=== PATIENT | female | born 1995 ===

== ENCOUNTER 2017-01-13 16:39 | Emergency (ER) | payer OTHER ==
[2017-01-13 18:02] VITALS: BP 128/86
[2017-01-13] MEDS ORDERED: Ketorolac INJ* 60 MG/2 ML VIAL IM ONE (18:35)
[2017-01-13] MEDS ORDERED: Ondansetron ODT TAB* 4 MG SL ONE (18:35)
--- NOTE | 2017-01-13 18:43 | UC ---
Headache HPI - HPI Summary HPI Summary: PATIENT ARRIVES TO WITH MULTIPLE COMPLAINTS. SHE NOTES TO A SEVERE HEADACHE BEHIND THE RIGHT EYE AT 9/10 PAIN. SYMPTOMS BEGAN 2 WEEKS AGO AND ARE INTERMITTENT, YET EVERYDAY. SHE DENIES TEARING. SHE ENDORSES NAUSEA ASSOCIATED , BUT STATES THE NAUSEA COULD BE FROM HER MENSTRUAL CRAMPS. SHE HAS SOME LIGHT SENSITIVITY, BUT NOT SOUND. SHE USED TO HAVE MIGRAINES AT FIRST ONSET OF MENSTRUATION WHEN SHE WAS AROUND 8. THEY THEN DISSIPATED AND HAS NOT HAD MIGRAINES SINCE. HER MENSTRUAL CRAMPS ARE 10/10 AND SHE SOAKS THROUGH A TAMPON AND PAD SOMETIMES EVERY HOUR WHILE ON HER PERIOD. THEY LAST ABOUT 7 DAYS AND SHE IS USUALLY UNABLE TO GO TO SCHOOL AND HER NORMAL ACTIVITIES. THEY ARE "DEBILITATING AND LEAVE ME ON THE FLOOR MOST OF THE DAY." SHE IS A STUDENT HERE AND DOES NOT HAVE A PRIMARY CARE OR OBGYN. SHE CONSIDERED GOING TO PLANNED PARENTHOOD. SHE IS NOT ON BC. SHE IS ALSO COMPLAINING OF CHRONIC GERD WHICH IS INTERMITTENT AND WORSE AFTER MEALS. SHE DOES NOT TAKE MEDICATIONS - History Of Current Complaint Chief Complaint: UCHeadache Stated Complaint: SORE THROAT Hx Obtained From: Patient Hx Last Menstrual Period: 01/07/17 ?: No Onset/Duration: Gradual Onset Onset Of Symptoms: Gradual Initially Headache Was: Initial Pain Scale(0-10)= - 9 Currently Pain Is: Current Pain Scale(0-10)= - 9 Pain Intensity: 9 Pain Scale Used: 0-10 Numeric Timing: Intermittent, Lasting: Character: Dull, Pressure, Migraine - OCULAR Location of Headache: Other: - OCULAR Allevating Factors: Nothing Associated Signs And Symptoms: Positive: Nausea - Risk Factors SAH Risk Factors: -Togolese Meningitis Risk Factors: Negative SDH Risk Factors: Negative Temporal Arteritis Risk Factors: Negative - Allergies/Home Medications Allergies/Adverse Reactions: Allergies Allergy/AdvReac Type Severity Reaction Status Date / Time No Known Allergies Allergy Verified 01/13/17 18:02 Home Medications: Home Medications Acetaminophen TAB* [Tylenol TAB*] 650 mg PO ONCE PRN 01/13/17 [History Confirmed 01/13/17] Sulfamethox/Trimethoprim DS* [Bactrim DS 800/160 TAB*] 1 tab PO BID 01/13/17 [ History Confirmed 01/13/17] PMH/Surg Hx/FS Hx/Imm Hx Previously Healthy: Yes - Surgical History Surgical History: Yes Surgery Procedure, Year, and Place: dental - Family History Known Family History: Positive: Unknown - Social History Occupation: Student Lives: With Family Alcohol Use: Occasionally Substance Use Type: None Smoking Status (MU): Never Smoked Tobacco Review of Systems Constitutional: Negative Eyes: Negative ENT: Negative Respiratory: Negative Cardiovascular: Negative Gastrointestinal: Other - NAUSEA Genitourinary: Dysuria, Other - CURRENT UTI SEVERE MENSTRUAL CRAMPS Motor: Negative Neurovascular: Negative Neurological: Negative Psychological: Negative All Other Systems Reviewed And Are Negative: Yes Physical Exam Triage Information Reviewed: Yes Appearance: Well-Appearing, No Pain Distress, Well-Nourished Vital Signs: Initial Vital Signs Temp 98.7 F 01/13/17 17:46 Pulse 76 01/13/17 17:46 Resp 18 01/13/17 17:46 BP 128/86 01/13/17 17:46 Vital Signs Reviewed: Yes Eye Exam: Normal Eyes: Positive: Conjunctiva Clear Neck exam: Normal Neck: Positive: Supple Respiratory: Positive: Chest non-tender, Lungs clear Cardiovascular Exam: Normal Cardiovascular: Positive: RRR Musculoskeletal Exam: Normal Musculoskeletal: Positive: Strength Intact, ROM Intact Neurological Exam: Normal Neurological: Positive: Alert, Muscle Tone Normal Psychological Exam: Normal Psychological: Positive: Normal Response To Family, Age Appropriate Behavior Skin Exam: Normal Headache Course/Dx - Course Course Of Treatment: PATIENT GIVEN TORADOL AND ZOFRAN FOR RELIEF IN OFFICE. PRESCRIPTION FOR SUMITRIPTAN GIVEN FOR MIGRAINE SCOTT. ZOFRAN RX FOR ASSOCIATED NAUSEA. OMEPRAZOLE GIVEN FOR GERD SYMPTOMS. PATIENT IS ENCOURAGED TO FOLLOW UP WITH NEURO THIS COULD BE A CHRONIC ISSUE AND WILL NEED A MORE THOROUGH EVALUATION. SHE IS ALSO REFERRED TO DR. STARK FOR SEVERE CRAMPING AND HEAVY PERIODS. PATIENT AGREES TO FOLLOW UP AND OK WITH DISCHARGE. INSTRUCTIONS GIVEN ON HOW TO TAKE MEDICATIONS. - Differential Dx/Diagnosis Differential Diagnosis/HQI/PQRI: Migraine, Sinus Headache, Tension Headache, Viral Syndrome Provider Diagnoses: MIGRAINE; DYSMENORRHEA; GERD Discharge - Discharge Plan Condition: Stable Disposition: HOME Prescriptions: Omeprazole CAP* [Prilosec CAP* 20 MG] 20 mg PO BEDTIME #30 cap. Ondansetron ODT TAB* [Zofran 4 MG Odt TAB*] 4 mg PO Q6H PRN #12 tab.odt MDD 4 PRN Reason: Nausea SUMAtriptan TAB* [Imitrex TAB*] 50 mg PO SEE INSTRUCTIONS PRN #20 tab MDD 3 PRN Reason: Migraine Headache Patient Education Materials: Migraine Headache (ED) Referrals: [facility], [Provider Group] Arnaldo Dixon MD [Medical Doctor] - Adam Stark MD [Medical Doctor] - Additional Instructions: FOLLOW UP WITH DR. DIXON FOR MIGRAINE SCOTT FOLLOW UP WITH DR. STARK FOR OBGYN CONTINUE ALL MEDICATIONS PRESCRIBED FOLLOW UP WITH HEALTHCARE CONSULTING MANAGER TOMORROW SCHEDULED IF SYMPTOMS BECOME WORSE, COME BACK TO UC OR GO TO THE ED IMMEDIATELY.
== END 2017-01-13 19:05 | disposition home or self-care (01) ==
LOC: UCCORT 16:39
DX: G43.909 Migraine, unspecified, not intractable, without status migrainosus (principal); N94.6 Dysmenorrhea, unspecified; K21.9 Gastro-esophageal reflux disease without esophagitis
CPT/HCPCS: 96372; 99202; G0463; J1885